=== PATIENT | female | born 1985 | race American Indian/Alaskan Native ===

== ENCOUNTER 2017-06-22 07:14 | Inpatient (IN) | payer MEDICAID, OTHER, SELFPAY ==
[2017-06-22 07:46] VITALS: BMI 24.2
[2017-06-22] MEDS ORDERED: Penicillin G 5 Million Unit Vial IVPB ONE (07:46)
[2017-06-22] MEDS ORDERED: Lactated Ringer's 1,000 ML IV SCH (08:00)
--- NOTE | 2017-06-22 08:16 | OBADHP ---
Datetime: 06/22/2017 08:05 Admit Comment, IP Provider: chief complaint-contractions HPI 31 y/o at 38.4 wga with c/o contractions.Patient denies vaginal bleeding or loss of fluid Patient denies nausea, vomting, headache, chest pain, shortness of breath, numbness or tingling in hands and feet course uncomplicated as per patient; [facility] PMH denies PSH denies OBGYN HX ; NVDX2 Social hx denies tobacco,alcohol or illicit drug Exam see exam section A/P 28 y/o at 38.4 wga in labor.GBS unknown. -admit -see orders -Pen G for unknown gbs -monitor closely Pelvic Type - PN: Adequate Extremities - PN: Normal Abdomen - PN: Normal Back - PN: Normal Lungs - PN: Normal Heart - PN: Normal Neurologic - PN: Normal General - PN: Normal Weight - Estimated: 3200 Presentation-Admit: Vertex Contraction Comments Provider: every 3-6min Gestation - Est Wks by US: 38.4 IP Hx Assessment: The History has been Reviewed and is Current Vital Signs Provider: Reviewed; Within Normal Limits IP Chief Complaint: Uterine contractions FHR Category Provider Fetus A: Category I Dilatation, Provider: 6 Effacement, Provider: 80 Station, Provider: -2 Genitourinary Exam: Normal DTRs - PN: Normal EGA AdmitDate IP: 38.4 IP Adm Impression: Term, intrauterine ; Active labor IP Admit Plan: Admit to unit
--- NOTE | 2017-06-22 08:17 | OBHP ---
Datetime: 06/22/2017 08:05 EGA AdmitDate IP: 38.4
[2017-06-22] MEDS ORDERED: Lidocaine 2% Inj (20ml) ONE ×2 (08:44→08:45)
[2017-06-22 08:48] LABS: BASO % 0.2 % (0.0-2.0); EOS % 0.5 % (0.0-4.0); HEMOGLOBIN 12.5 g/dL (11.0-16.0); LYMPH # 1.9 K/uL (1.0-4.3); LYMPH % 21.4 % (20.0-40.0); MEAN CELL VOLUME 80.3 fL (81.0-99.0); MEAN CORPUSCULAR HEMOGLOBIN 27.2 pg (27.0-31.0); MEAN CORPUSCULAR HGB CONC 33.9 g/dL (33.0-37.0); MEAN PLATELET VOLUME 9.7 fL (7.2-11.7); MONO # 0.6 K/uL (0.0-0.8); MONO % 6.2 % (0.0-10.0); NEUT # 6.5 K/uL (1.8-7.0); NEUT % 71.7 % (50.0-75.0); RBC 4.59 Mil/uL (3.80-5.20); WHITE BLOOD COUNT 9.1 K/uL (4.8-10.8)
[2017-06-22 08:57] LABS: ALBUMIN 3.1 g/dL (3.5-5.0)
[2017-06-22 08:59] LABS: GFR AFRICAN-AMERICAN > 60; GFR NON-AFRICAN AMERICAN > 60
--- NOTE | 2017-06-22 08:59 | OBDS ---
DELIVERY PERSONNEL Delivery Doctor: Sindi French MD Dental Service Technician: Cristi Peña RN MATERNAL INFORMATION Delivery Anesthesia: None Estimated Blood Loss (ml): 200 Provider Comments: of a female .nuchalx1 around neck and loose and reduced on perineum.Bod y and shoulders delivered without diffiuclty.Cord clamped and cut.Cord blood collected.Placenta spont aneously delivered.First degree perineal and right labial laceration repiared with 2-0 chromic.Fundus firm.patient stable.ebl 200cc LABOR SUMMARY EDC: 07/02/2017 00:00 No. Babies in Womb: 1 Attempted: No Labor Anesthesia: None LABOR INFORMATION Onset of Labor: 06/22/2017 05:45 Complete Dilatation: 06/22/2017 08:30 MEMBRANES Membranes Rupture Method: Artificial Rupture of Membranes: 06/22/2017 08:25 Length of Rupture (hrs): 0.13 Amniotic Fluid Color: Clear Amniotic Fluid Amount: Moderate Amniotic Fluid Odor: Normal STAGES OF LABOR Stage 1 hrs: 2 Stage 1 min: 45 Stage 2 hrs: 0 Stage 2 min: 3 Stage 3 hrs: 0 Stage 3 min: 7 Total Time in Labor hrs: 2 Total Time in Labor min: 55 VAGINAL DELIVERY Episiotomy: None Laceration Extension: First Degree Laceration Type: Perineal Other Laceration: labial Laceration Repair: Yes Initial Vag Sponge Count: 10 Final Vag Sponge Count: 10 Initial Vag Sharps Count: 2 Sponge Count Correct: Yes; Vaginal Sweep Performed Sharps Count Correct: Yes BABY A INFORMATION Delivery Date/Time: 06/22/2017 08:33 Method of Delivery: Vaginal Born in Route : No : N/A Forceps: N/A Vacuum Extraction: N/A Shoulder Dystocia : No SHOULDER DYSTOCIA BABY A Delivery Date/Time: 06/22/2017 08:33 PRESENTATION/POSITION BABY A Presentation: Cephalic Cephalic Presentation: Vertex Vertex Position: Left Occipital Anterior PLACENTA INFORMATION BABY A Placenta Delivery Time : 06/22/2017 08:40 Placenta Method of Delivery: Spontaneous Placenta Status: Delivered SCORES BABY A Heart Rate 1 min: >100 bpm Resp Effort 1 min: Good Cry Reflex Irritability 1 min: Cough or Sneeze or Pulls Away Muscle Tone 1 min: Active Motion Color 1 min: Body [place], Extremities Blue SCORE 1 MIN: 9 Heart Rate 5 min: >100 bpm Resp Effort 5 min: Good Cry Reflex Irritability 5 min: Cough or Sneeze or Pulls Away Muscle Tone 5 min: Active Motion Color 5 min: Body [place], Extremities Blue SCORE 5 MIN: 9 INFANT INFORMATION BABY A Gestational Age at Delivery: 38.4 Gestational Status: Term Infant Outcome : Liveborn Infant Condition : Stable Infant Sex: Female IDENTIFICATION/MEDS BABY A ID Band Number: [id number] Sensor Applied: Yes Sensor Number: [id number] Sensor Location : Cord Clamp WEIGHT/LENGTH BABY A Birthweight (gms): 2920 Infant Weight (lb): 6 Infant Weight (oz): 7 Infant Length Inches: 19.75 Length cms: 50.2 CORD INFORMATION BABY A No. Cord Vessels: 3 Nuchal Cord : Around Neck x1, Loose Cord Blood Taken: Yes Infant Suction: Mouth; Nose ASSESSMENT BABY A Complications: None Physical Findings at Delivery: Within Normal Limits Respirations: Appears Normal [place]/ALS Called : No Transferred To: Remains with Mother
[2017-06-22 09:00] LABS: ALB/GLOB RATIO 0.8 (1.0-2.1); ALT/SGPT 20 U/L (9-52); AST/SGOT 20 U/L (14-36); BLOOD UREA NITROGEN 5 mg/dL (7-17); CALCIUM 8.2 mg/dl (8.6-10.4)
[2017-06-22 09:02] LABS: SQUAMOUS EPITHIAL 6 /hpf (0-5); URINE AMORPHOUS SEDIMENT RARE /ul (<OCC); URINE BACTERIA OCC (<OCC); URINE BILIRUBIN NEGATIVE (NEGATIVE); URINE BLOOD 1+ (NEGATIVE); URINE CLARITY Hazy (Clear); URINE COLOR Yellow (YELLOW); URINE GLUCOSE (UA) NORMAL (Normal); URINE LEUKOCYTE ESTERASE 3+ Leu/uL (Negative); URINE NITRATE NEGATIVE (NEGATIVE); URINE PROTEIN 1+ mg/dL (NEGATIVE); URINE UROBILINOGEN NORMAL mg/dL (0.2-1.0)
[2017-06-22 09:15] LABS: RAPID PLASMA REAGIN NONREACTIVE (NONREACTIVE)
[2017-06-22 09:19] LABS: BARBITURATES, UR NEGATIVE (NEGATIVE); BENZODIAZEPINES, UR NEGATIVE (NEGATIVE)
[2017-06-22 09:24] LABS: OPIATES, UR NEGATIVE (NEGATIVE); PHENCYCLIDINE, UR NEGATIVE (NEGATIVE)
[2017-06-22] MEDS ORDERED: Oxycodone/Acetaminophen 5/325 mg Tab PO PRN ×2 (09:54)
[2017-06-22] MEDS ORDERED: Benzocaine/Menthol 20%-0.5% Topical Spray (60 ml) TOP PRN (09:54)
[2017-06-22 11:14] LABS: HEP B SURFACE AG CONF CONFIRMED POSITIVE; HEPATITIS B SURFACE AG POSITIVE (NEGATIVE)
[2017-06-22] MEDS: Multiple Vitamins Tab PO SCH (12:45)
--- NOTE | 2017-06-23 07:46 | OBPPN ---
Datetime: 06/23/2017 07:43 PP Pain Prov: Within normal limits PP Nausea Prov: Denies PP Flatus Prov: Yes PP Abdomen/Uterus Prov: Normal PP Lochia Prov: Normal PP Extremities Prov: Normal PP Comments Phys Exam Prov: fudus below umbl ext no edema,no cakf ten PP Impression Prov: Normal progression PP Plan Prov: Continue present management PP Progress Note Prov: pt was seen at bed side, pain under control,no n/v, tolerating deit,voiding,m in lochia, flatus+ ppd#1 s/p cbc reg deit cont pp care cont pain herson Vital Signs Provider PP: Reviewed; Within Normal Limits
[2017-06-23 08:15] LABS: BASO % 0.5 % (0.0-2.0); EOS # 0.1 K/uL (0.0-0.7); EOS % 1.1 % (0.0-4.0); HEMOGLOBIN 12.1 g/dL (11.0-16.0); LYMPH # 2.3 K/uL (1.0-4.3); LYMPH % 24.4 % (20.0-40.0); MEAN CELL VOLUME 80.9 fL (81.0-99.0); MEAN CORPUSCULAR HEMOGLOBIN 27.5 pg (27.0-31.0); MEAN PLATELET VOLUME 10.8 fL (7.2-11.7); MONO # 0.6 K/uL (0.0-0.8); NEUT # 6.4 K/uL (1.8-7.0); RBC 4.4 Mil/uL (3.80-5.20); RED CELL DISTRIBUTION WIDTH 16.4 % (11.5-14.5); WHITE BLOOD COUNT 9.4 K/uL (4.8-10.8)
[2017-06-23] MEDS: Multiple Vitamins Tab PO SCH (09:17)
[2017-06-24 08:32] VITALS: BP 112/74; PULSE 84; RESP 18; TEMP 98.2; O2SAT 100
--- NOTE | 2017-06-24 09:30 | OBPPN ---
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 O-VSS Afebrile Fundus firm and below umbilcus Extremities no calf tenderness A/P Patient s/p vaginal delivery PPD 2 doing well.Patient with hepatitis B surface antigen positiv e. -discharge today -follow up in clinic in 1 weeks for hepatitis b -patient given discharge instructions Vital Signs Provider PP: Reviewed; Within Normal Limits
--- NOTE | 2017-06-24 09:32 | OBDCSUM ---
Datetime: 06/24/2017 09:28 Discharged to, Provider: Home Follow up at, Provider: clinic Disch Instr Diet: Regular Discharge Instructions, Provider: Routine instructions given Discharge Diagnosis, Provider: Term Delivered Discharge Time: 06/24/2017 09:29 Follow up in weeks, Provider: 1 week Disch Activity Restrictions: No exercising; No lifting; Minimize stair-climbing; No sexual activity; Nothing in vagina - [place], tampons, douche Discharge Comment, Provider: follow up in clinic in 1 wee to compleet the hepatitis b workup go to er if you have fever, severe pain, heavy bleeding , pain or redness in calf msucles or any o ther problems
[2017-06-24] MEDS: Multiple Vitamins Tab PO SCH (11:39)
[2017-06-24] MEDS ORDERED: Measles, Mumps, and Rubella 0.5 ML VIAL SC ONE (13:56)
== END 2017-06-24 17:20 | disposition home or self-care (01) | DRG 775 ==
LOC: C.EROB 07:14 → C.4D 07:46 → C.4M 10:30
PROVIDERS: ADMIT Student in an Organized Health Care Education/Training Program; ATTEND Student in an Organized Health Care Education/Training Program
PROC: 10E0XZZ Delivery of Products of Conception, External Approach (ICD-10-PCS; principal; 2017-06-22)
PROC: 0HQ9XZZ Repair Perineum Skin, External Approach (ICD-10-PCS; 2017-06-22)
PROC: 10907ZC Drainage of Amniotic Fluid, Therapeutic from Products of Conception, Via Natural or Artificial Opening (ICD-10-PCS; 2017-06-22)
DX: O69.81X0 Labor and delivery complicated by cord around neck, without compression, not applicable or unspecified (principal); O70.0 First degree perineal laceration during delivery; Z37.0 Single live birth; Z3A.38 38 weeks gestation of pregnancy